=== PATIENT | male | born 1950 | race Caucasian/White ===

== ENCOUNTER → 2018-04-18 | Outpatient (CLI) | payer BC, OTHER ==
[~2018-04-18] MED LIST: AMOX-556 PO; ASPI81TA94 PO; ATOR20TA22 PO; EZET1TAB55 PO; FISH1CAP15 PO; PNEI IJ; PNEU0.5D3 IM; SIMV-49 PO; TAMS0.4C25 PO
[2018-04-18 14:58] LABS: PLATELET COUNT, AUTOMATED 235 K/uL (150-450)
== END ==
LOC: LAB 14:31
PROVIDERS: ATTEND Internal Medicine
DX: N40.0 Benign prostatic hyperplasia without lower urinary tract symptoms (principal); E78.5 Hyperlipidemia, unspecified
CPT/HCPCS: 36415; 85025